=== PATIENT | male | born 2000 | race African-American/Black ===

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

== ENCOUNTER 2018-12-16 06:11 | Day surgery (SDC) | payer BC ==
[2018-12-16] MEDS ORDERED: ROCURONIUM 50 MG INJ ×2 (07:00→07:42)
[2018-12-16] MEDS ORDERED: EPHEDrine SULFATE 50 MG/5 ML SYG IV (07:30)
[2018-12-16] MEDS ORDERED: LABETALOL HCL 20MG INJ IV (07:30)
[2018-12-16] MEDS ORDERED: DIPHENHYDRAMINE 50 MG INJ IV (07:30)
[2018-12-16] MEDS ORDERED: IPRATROPIUM (NEB) 0.5 MG/2.5 ML AMP HHN (07:30)
[2018-12-16] MEDS ORDERED: HYDROmorphONE 1 MG/5 ML IV SYRINGE IV ×3 (07:30)
[2018-12-16] MEDS ORDERED: MIDAZOLAM 1 MG/ML 2 ML INJ IV (07:30)
[2018-12-16] MEDS ORDERED: OXYCODONE/ACETAMINOPHEN (5/325) TAB PO ×2 (07:30)
[2018-12-16] MEDS ORDERED: TRIMETHOBENZAMIDE 100 MG/ML VIAL IM (07:30)
[2018-12-16] MEDS ORDERED: hydrALAzine 20 MG INJ IV (07:30)
[2018-12-16] MEDS ORDERED: ALBUTEROL 0.083% (NEB) 2.5 MG/3 ML AMP HHN (07:30)
[2018-12-16] MEDS ORDERED: FENTAnyl 50 MCG/ML VIAL IV ×3 (07:30)
[2018-12-16] MEDS ORDERED: POVIDONE IODINE 10% 28.4 GM OINT (07:34)
[2018-12-16] MEDS ORDERED: ROPIVACAINE 0.5 % 30 ML VIAL ×2 (07:34→07:47)
[2018-12-16] MEDS ORDERED: PROPOFOL 20 ML (07:42)
[2018-12-16] MEDS ORDERED: GLYCOPYRROLATE 0.4 MG INJ (07:42)
[2018-12-16] MEDS ORDERED: NEOSTIGMINE 3 MG/3 ML SYRINGE (07:43)
[2018-12-16] MEDS ORDERED: CEFAZOLIN 1 GM INJ (07:43)
[2018-12-16] MEDS ORDERED: MIDAZOLAM 1 MG/ML 2 ML INJ (07:45)
[2018-12-16] MEDS ORDERED: FENTAnyl 50 MCG/ML VIAL ×2 (07:45→08:53)
[2018-12-16] MEDS ORDERED: DEXAMETHASONE 4 MG/ML 5 ML INJ (07:45)
[2018-12-16] MEDS ORDERED: ONDANSETRON 4 MG INJ (07:45)
[2018-12-16] MEDS: POLYMYXIN/BACITRACIN 1L IRRIG (08:52)
[2018-12-16] MEDS ORDERED: SUGAMMADEX SODIUM 200 MG/2 ML VIAL IV (10:55)
[2018-12-16] MEDS ORDERED: KETOROLAC 30 MG INJ (10:55)
[2018-12-16] MEDS: ONDANSETRON 4 MG INJ IV (11:22)
[2018-12-16] MEDS: MEPERIDINE 25 MG INJ IV (11:23)
[2018-12-16] MEDS ORDERED: morphine 2 MG INJ IV (11:30)
[2018-12-16] MEDS: KETOROLAC 30 MG INJ IV (12:08)
== END 2018-12-16 12:55 | disposition home or self-care (01) ==
LOC: SDS 06:11
DX: S83.512D Sprain of anterior cruciate ligament of left knee, subsequent encounter (principal); S83.412D Sprain of medial collateral ligament of left knee, subsequent encounter; X58.XXXD Exposure to other specified factors, subsequent encounter
CPT/HCPCS: 27405; 82306

== ENCOUNTER 2018-12-26 23:50 | Emergency (ER) | payer BC ==
[2018-12-27] MEDS: KETOROLAC 60 MG INJ IM (00:44)
[2018-12-27] MEDS: HYDROCODONE/APAP (5/325) TAB PO (00:44)
== END 2018-12-27 02:02 | disposition home or self-care (01) ==
LOC: FTE 23:50
DX: M79.605 Pain in left leg (principal)
CPT/HCPCS: 93971; 96372; 99284-25